=== PATIENT | male | born 1980 ===

== ENCOUNTER 2020-07-15 12:34 | Emergency (ER) | payer OTHER ==
[2020-07-15] MEDS ORDERED: LACTATED RINGERS 1,000 ML IV SCH (12:55)
--- NOTE | 2020-07-15 12:55 | ED Cough/URI ---
General Chief Complaint: Respiratory Problems Stated Complaint: SOB History of Present Illness Date Seen by Provider: Jul 15, 2020 Time Seen by Provider: 12:45 Initial Comments 39-year-old male presents due to cough, feeling short of breath, decreased appetite. Patient was diagnosed with COVID approximate 5 days ago. Patient is currently incarcerated. Patient presents because he feeling more short of breath. No reports of fever. Some occasional nausea vomiting. Allergies and Home Medications Allergies Coded Allergies: Penicillins (Verified Allergy, Unknown, 07/15/20) Home Medications Benzonatate 100 Mg Capsule, 100 MG PO Q8H PRN for COUGH Prescribed by: FAUSTINO GARNICA on 07/15/20 135 Ondansetron 4 Mg Tab.rapdis, 4 MG PO Q6H PRN for NAUSEA/VOMITING Prescribed by: FAUSTINO GARNICA on 07/15/20 9547 Patient Home Medication List Home Medication List Reviewed: Yes Review of Systems Review of Systems Constitutional: No chills; fever, malaise Respiratory: cough, short of breath Cardiovascular: No palpitations Gastrointestinal: No abdominal pain; nausea, vomiting Genitourinary: no symptoms reported Musculoskeletal: no symptoms reported Skin: no symptoms reported Psychiatric/Neurological: No Symptoms Reported Hematologic/Lymphatic: No Symptoms Reported Past Jmzlcsa-Vsqlyx-Igjdol Hx Past Med/Social Hx: Reviewed Nursing Past Med/Soc Hx Patient Social History Alcohol Use: Past History Recreational Drug Use: 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 Smoking Status: Current Everyday Smoker Type Used: Cigarettes 2nd Hand Smoke Exposure: No Recent Hopitalizations: No Physical Abuse: No Sexual Abuse: No Mistreated: No Fear: No Seasonal Allergies Seasonal Allergies: No Past Medical History Surgeries: No Respiratory: No Cardiac: No Neurological: No Genitourinary: No Gastrointestinal: Yes Pancreatitis Musculoskeletal: No Endocrine: No HEENT: No Cancer: No Psychosocial: No Integumentary: No Blood Disorders: No Physical Exam Vital Signs - First Documented 07/15/20 12:50 Temp 35.9 Pulse 95 Resp 18 B/P (MAP) 116/87 (97) Pulse Ox 93 O2 Delivery Room Air Capillary Refill : Height: '" Weight: lbs. oz. kg; BMI Method: General Appearance: WD/WN, no apparent distress Neck: full range of motion, supple Respiratory: lungs clear Cardiovascular: normal peripheral pulses, regular rate, rhythm, no edema Gastrointestinal: soft; No distended, No guarding, No rebound Extremities: normal range of motion, no pedal edema Neurologic/Psychiatric: donkey doctor II-XII nml as tested, no motor/sensory deficits, alert, normal mood/affect, oriented x 3 Skin: normal color, warm/dry Focused Exam Lactate Level 07/15/20 13:05: Lactic Acid Level 1.10 Lactic Acid Level Laboratory Tests Test 07/15/20 13:05 Lactic Acid Level 1.10 MMOL/L (0.50-2.00) Progress/Results/Core Measures Suspected Sepsis SIRS Temperature: Pulse: Respiratory Rate: Laboratory Tests 07/15/20 12:49: White Blood Count 5.7 Blood Pressure / Mean: 07/15/20 13:05: Lactic Acid Level 1.10 Laboratory Tests 07/15/20 12:49: Creatinine 0.74, Platelet Count 195, Total Bilirubin 0.5 07/15/20 13:05: INR Comment 1.0 Results/Orders Lab Results Laboratory Tests Test 07/15/20 12:49 07/15/20 13:05 Range/Units White Blood Count 5.7 4.3-11.0 10^3/uL Red Blood Count 5.55 4.35-5.85 10^6/uL Hemoglobin 17.0 13.3-17.7 G/DL Hematocrit 48 40-54 % Mean Corpuscular Volume 87 80-99 FL Mean Corpuscular Hemoglobin 31 25-34 PG Mean Corpuscular Hemoglobin Concent 35 32-36 G/DL Red Cell Distribution Width 12.0 10.0-14.5 % Platelet Count 195 130-400 10^3/uL Mean Platelet Volume 10.4 7.4-10.4 FL Immature Granulocyte % (Auto) 2 % Neutrophils (%) (Auto) 65 42-75 % Lymphocytes (%) (Auto) 24 12-44 % Monocytes (%) (Auto) 9 0-12 % Eosinophils (%) (Auto) 0 0-10 % Basophils (%) (Auto) 0 0-10 % Neutrophils # (Auto) 3.7 1.8-7.8 X 10^3 Lymphocytes # (Auto) 1.4 1.0-4.0 X 10^3 Monocytes # (Auto) 0.5 0.0-1.0 X 10^3 Eosinophils # (Auto) 0.0 0.0-0.3 10^3/uL Basophils # (Auto) 0.0 0.0-0.1 10^3/uL Immature Granulocyte # (Auto) 0.1 0.0-0.1 10^3/uL Sodium Level 135 135-145 MMOL/L Potassium Level 4.4 3.6-5.0 MMOL/L Chloride Level 101 98-107 MMOL/L Carbon Dioxide Level 21 21-32 MMOL/L Anion Gap 13 5-14 MMOL/L Blood Urea Nitrogen 12 7-18 MG/DL Creatinine 0.74 0.60-1.30 MG/DL Estimat Glomerular Filtration Rate > 60 BUN/Creatinine Ratio 16 Glucose Level 114 H 70-105 MG/DL Calcium Level 8.5 8.5-10.1 MG/DL Corrected Calcium 8.8 8.5-10.1 MG/DL Total Bilirubin 0.5 0.1-1.0 MG/DL Aspartate Amino Transf (AST/SGOT) 58 H 5-34 U/L Alanine Aminotransferase (ALT/SGPT) 52 0-55 U/L Alkaline Phosphatase 61 40-136 U/L Troponin I < 0.30 <0.30 NG/ML C-Reactive Protein 6.89 H <0.50 MG/DL Total Protein 7.3 6.4-8.2 GM/DL Albumin 3.6 3.2-4.5 GM/DL Prothrombin Time 13.0 12.2-14.7 SEC INR Comment 1.0 0.8-1.4 Activated Partial Thromboplast Time 30 24-35 SEC Fibrinogen 221-496 MG/DL Lactic Acid Level 1.10 0.50-2.00 MMOL/L My Orders Orders - GARNICA,FAUSTINO L DO Cbc With Automated Diff (07/15/20 12:55) Comprehensive Metabolic Panel (07/15/20 12:55) Ferritin (07/15/20 12:55) LDH (07/15/20 12:55) Hs C Reactive Protein (07/15/20 12:55) Crp Fs (07/15/20 12:55) Troponin I Fs (07/15/20 12:55) Lactic Acid Analyzer (07/15/20 12:55) Protime With Inr (07/15/20 12:55) Partial Thromboplastin Time (07/15/20 12:55) Fibrinogen (07/15/20 12:55) Lactated Ringers (Lr 1000 Ml Iv Solution (07/15/20 12:55) Ondansetron Injection (Zofran Injectio (07/15/20 13:00) Chest 1 View Ap/Pa Only (07/15/20 12:55) Rx-Albuterol Inhaler (Rx-Ventolin Hfa) (07/15/20 13:13) Famotidine Injection (Pepcid Injection) (07/15/20 13:15) Famotidine Injection (Pepcid Injection) (07/15/20 13:13) Rx-Albuterol Inhaler (Rx-Ventolin Hfa) (07/15/20 13:15) Medications Given in ED Current Medications Medications Dose Ordered Sig/Lori Route Start Time Stop Time Status Last Admin Dose Admin Famotidine 20 mg ONCE ONCE IVP 07/15/20 13:15 07/15/20 13:16 DC 07/15/20 13:16 20 MG Ondansetron HCl 4 mg ONCE ONCE IV 07/15/20 13:00 07/15/20 13:01 DC 07/15/20 13:08 4 MG Vital Signs/I&O 07/15/20 12:50 Temp 35.9 Pulse 95 Resp 18 B/P (MAP) 116/87 (97) Pulse Ox 93 O2 Delivery Room Air Capillary Refill : Progress Note : Time: 13:50 Progress Note Patient with no findings on physical exam. Patient's labs do not show severe dehydration or any abnormalities. Patient was some mild infiltrate consistent with COVID on x-ray. Patient's oxygen saturation here in the ER is in the mid 90s. At this time or no indications for admission. I will send him home with Phyllis Fonseca and an inhaler. Recommend he start vitamin D, Cand Zinc. Patient is discharged home in stable condition Diagnostic Imaging Diagonstic Imaging: Xray Plain Films/CT/US/NM/MRI: chest Comments [facility]. [place], [place] NAME: YEMI MCFADDEN [facility] REC#: [id number] PT STATUS: REG ER : 1980 PHYSICIAN: FAUSTINO GARNICA DO ADMIT DATE: 07/15/20/ER FS Signed Date of Exam:07/15/20 CHEST 1 VIEW AP/PA ONLY Indication: Cough and shortness of breath Portable chest 1:06 PM Heart size and pulmonary vasculature are normal. There are some patchy areas of consolidation in the lungs that could be pneumonia. There are no effusions or pneumothoraces. IMPRESSION: Faint patchy pulmonary infiltrates could represent viral pneumonia. Reviewed: Reviewed by Me, Reviewed/Discussed Departure Impression Primary Impression: COVID-19 Disposition: 21 DIS/X[address]/[place] Condition: Stable Departure-Patient Inst. Patient Instructions: Coronavirus Disease 2019 (COVID-19) Overview Add. Discharge Instructions: Vit C 500 mg twice daily, Zinc 100 mg daily, Vit D3 1000-3000u daily, famotide 20 mg twice daily, Aspirin 325 mg daily Drink plenty of fluids All discharge instructions reviewed with patient and/or family. Voiced understanding. Scripts Benzonatate (TESSALON PERLES) 100 Mg Capsule 100 MG PO Q8H PRN for COUGH, #20 CAP . Prov: FAUSTINO GARNICA DO 07/15/20 Ondansetron (Ondansetron Odt) 4 Mg Tab.rapdis 4 MG PO Q6H PRN for NAUSEA/VOMITING, #30 0 Refills Prov: FAUSTINO GARNICA DO 07/15/20 FAUSTINO GARNICA DO Jul 15, 2020 12:55
[2020-07-15] MEDS ORDERED: ONDANSETRON 4 MG/2 ML (SDV) Z0FRAN IV ONE (13:00)
[2020-07-15 13:04] LABS: BASOPHILS % (AUTO) 0 % (0-10); EOSINOPHILS % (AUTO) 0 % (0-10); HEMATOCRIT 48 % (40-54); LYMPHOCYTES % (AUTO) 24 % (12-44); MEAN CORPUSCULAR HEMOGLOBIN 31 PG (25-34); MEAN CORPUSCULAR HGB CONC 35 G/DL (32-36); MEAN CORPUSCULAR VOLUME 87 FL (80-99); MEAN PLATELET VOLUME 10.4 FL (7.4-10.4); MONOCYTES % (AUTO) 9 % (0-12); NEUTROPHILS % (AUTO) 65 % (42-75); PLATELET COUNT 195 10^3/uL (130-400); WHITE BLOOD COUNT 5.7 10^3/uL (4.3-11.0)
[2020-07-15 13:05] LABS: LYMPHOCYTES # (AUTO) 1.4 X 10^3 (1.0-4.0); MONOCYTES # (AUTO) 0.5 X 10^3 (0.0-1.0); NEUTROPHILS # (AUTO) 3.7 X 10^3 (1.8-7.8)
[2020-07-15] MEDS ORDERED: RX-ALBUTEROL INHALER (VENTOLIN HFA) 18 GM IH STA (13:13)
[2020-07-15] MEDS ORDERED: FAMOTIDINE 20MG/2ML IV (PEPCID) ONE (13:13)
[2020-07-15] MEDS ORDERED: RX-ALBUTEROL INHALER (VENTOLIN HFA) 18 GM IH ONE (13:15)
[2020-07-15] MEDS ORDERED: FAMOTIDINE 20MG/2ML IV (PEPCID) IVP ONE (13:15)
--- NOTE | 2020-07-15 13:19 | Diagnostic Imaging Report ---
Indication: Cough and shortness of breath Portable chest 1:06 PM Heart size and pulmonary vasculature are normal. There are some patchy areas of consolidation in the lungs that could be pneumonia. There are no effusions or pneumothoraces. IMPRESSION: Faint patchy pulmonary infiltrates could represent viral pneumonia. Dictated by: Dictated on workstation # [id number]
[2020-07-15 13:26] LABS: BUN/CREATININE RATIO 16; CALCIUM 8.5 MG/DL (8.5-10.1); CARBON DIOXIDE 21 MMOL/L (21-32); CHLORIDE 101 MMOL/L (98-107); CREATININE SERUM 0.74 MG/DL (0.60-1.30); GFR ESTIMATED > 60; GLUCOSE 114 MG/DL (70-105); POTASSIUM 4.4 MMOL/L (3.6-5.0); SODIUM 135 MMOL/L (135-145)
[2020-07-15 13:27] LABS: ALANINE AMINOTRANSFERASE 52 U/L (0-55); ALBUMIN 3.6 GM/DL (3.2-4.5); ALKALINE PHOSPHATASE 61 U/L (40-136); BILIRUBIN,TOTAL 0.5 MG/DL (0.1-1.0); TOTAL PROTEIN 7.3 GM/DL (6.4-8.2)
[2020-07-15 13:38] LABS: PARTIAL THROMBOPLASTIN TIME 30 SEC (24-35)
[2020-07-15] MEDS ORDERED: ONDA4TAB11 PO (13:57)
[2020-07-15] MEDS ORDERED: BENZ100C18 PO ×2 (13:57→13:59)
[2020-07-15 14:20] VITALS: BP 108/64
== END 2020-07-15 14:20 ==
LOC: EDUNIT# 12:34 → ER FS 12:36
DX: U07.1 COVID-19 (principal); F17.210 Nicotine dependence, cigarettes, uncomplicated; Z88.0 Allergy status to penicillin
CPT/HCPCS: 36415; 71045; 80053; 82728; 83605; 83615; 84484; 85025; 85610; 85730; 86141